=== PATIENT | female | born 1950 ===

== ENCOUNTER → 2024-08-15 10:03 | Outpatient (REF) | payer OTHER, SELFPAY | LOC: RCS 10:03 | PROVIDERS: ATTENDING PHYSICIAN Chiropractor Rehabilitation; FAMILY PHYSICIAN Student in an Organized Health Care Education/Training Program | DX: R00.2 Palpitations (principal); I47.19 Other supraventricular tachycardia; I49.1 Atrial premature depolarization | CPT/HCPCS: 93225; 93226 ==